=== PATIENT | female | born 1940 | race Caucasian/White ===

== ENCOUNTER 2018-06-07 10:37 | Emergency (ER) | payer MEDICARE ==
[2018-06-07 11:09] VITALS: BP 137/78
--- NOTE | 2018-06-07 12:03 | UC ---
Respiratory Complaint HPI - HPI Summary HPI Summary: 78-year-old female presents with 5-6 day history of nonproductive cough and chest congestion. States cough is worse at night. Complains of bilateral chest wall pain with cough. Reports symptoms are improved today. Denies fever , chills, nasal congestion, nasal discharge, ear pain, sore throat, wheezing, shortness of breath, chest pain, palpitations, diaphoresis, abdominal pain, nausea, or vomiting. - History of Current Complaint Chief Complaint: UCRespiratory Stated Complaint: COUGH,WEAK Time Seen by Provider: 06/07/18 11:52 Hx Obtained From: Patient Pain Intensity: 0 - Allergies/Home Medications Allergies/Adverse Reactions: Allergies Allergy/AdvReac Type Severity Reaction Status Date / Time nitrofurantoin Allergy Rash Verified 06/07/18 11:04 [From Macrodantin] Home Medications: Home Medications Aspirin 81 mg CHEW TAB* [Aspirin Low Dose TAB*] 81 mg PO DAILY 06/07/18 [ History Confirmed 06/07/18] Atenolol TAB* [Tenormin TAB* 50 MG] 50 mg PO DAILY 06/07/18 [History Confirmed 06/07/18] Atorvastatin* [Lipitor*] 20 mg PO DAILY 06/07/18 [History Confirmed 06/07/18] Calcium Carbonate [Calcium/C/D] 1 chw PO DAILY 06/07/18 [History Confirmed 06/07] Losartan TAB* [Cozaar TAB*] 25 mg PO DAILY 06/07/18 [History Confirmed 06/07/18] Omeprazole 40 mg PO DAILY 06/07/18 [History Confirmed 06/07/18] glyBURIDE TAB* [Diabeta TAB*] 10 mg PO BID 06/07/18 [History Confirmed 06/07/18] PMH/Surg Hx/FS Hx/Imm Hx Endocrine History: Diabetes, Dyslipidemia Cardiovascular History: Hypertension GI/ History: Gastroesophageal Reflux - Surgical History Surgical History: Yes Surgery Procedure, Year, and Place: , tonsillectomy - Family History Known Family History: Positive: Non-Contributory - Social History Occupation: Retired Lives: Alone Alcohol Use: None Substance Use Type: None Smoking Status (MU): Never Smoked Tobacco Review of Systems All Other Systems Reviewed And Are Negative: Yes Constitutional: Negative: Fever, Chills Eyes: Negative: Drainage, Eye Redness ENT: Negative: Sore Throat, Ear Ache, Nasal Discharge, Sinus Congestion, Sinus Pain/Tenderness Respiratory: Positive: Cough, Other - Bilateral chest wall tenderness with cough. Negative: Shortness Of Breath Cardiovascular: Negative: Palpitations, Chest Pain Gastrointestinal: Negative: Abdominal Pain, Vomiting, Diarrhea, Nausea Genitourinary: Positive: Negative Musculoskeletal: Positive: Negative Neurological: Positive: Negative Is Patient Immunocompromised?: No Physical Exam - Summary Physical Exam Summary: GENERAL APPEARANCE: Well developed, well nourished, alert and cooperative, and appears to be in no acute distress. EYES: Conjunctiva clear. No drainage. Vision is grossly intact. EARS: External auditory canals and tympanic membranes clear, hearing grossly intact. NOSE: No nasal discharge. THROAT: Pharynx normal No tonsilar inflammation, swelling, exudate, or lesions. Uvula midline. Oral cavity normal. Teeth and gingiva in good general condition. NECK: Neck supple, non-tender without lymphadenopathy. CARDIAC: Normal S1 and S2. No S3, S4 or murmurs. Rhythm is regular. There is no peripheral edema, cyanosis or pallor. Extremities are warm and well perfused. Capillary refill is less than 2 seconds. Peripheral pulses intact. LUNGS: Mild bilateral chest wall tenderness with palpation. Lungs clear to auscultation without rales, rhonchi, wheezing or diminished breath sounds. Cough not observed. ABDOMEN: Positive bowel sounds. Soft, nondistended, nontender. No guarding or rebound. No masses or hepatosplenomegally. MUSKULOSKELETAL: ROM intact to all extremities. No joint erythema or tenderness. Normal muscular development. Normal gait. SKIN: Skin normal color, texture and turgor with no lesions or eruptions. Triage Information Reviewed: Yes Vital Signs: Initial Vital Signs Temp 99.2 F 06/07/18 11:02 Pulse 79 06/07/18 11:02 Resp 18 06/07/18 11:02 BP 137/78 06/07/18 11:02 Pulse Ox 97 06/07/18 11:02 Vital Signs Reviewed: Yes Respiratory Course/Dx - Course Course Of Treatment: 78-year-old female presents with 5-6 day history of nonproductive cough and chest congestion. States cough is worse at night. Complains of bilateral chest wall pain with cough. Reports symptoms are improved today. Denies fever, chills, nasal congestion, nasal discharge, ear pain, sore throat, wheezing, shortness of breath, chest pain, palpitations, diaphoresis, abdominal pain, nausea, or vomiting. Afebrile. Vital signs stable. Exam reveals an older adult female in no acute distress with some mild bilateral chest wall tenderness with palpation, clear bilateral breath sounds, and otherwise unremarkable exam. Recommending symptomatic treatment for an acute bronchitis. I provided her with a prescription for Tessalon Perles 1cap every 8 hours as she needs it for the cough. He is to follow-up with her primary care provider in 3-5 days if symptoms do not improve. Anticipatory guidance and warning symptoms were reviewed with the patient. Verbalizes understanding and agrees with plan of care. - Differential Dx/Diagnosis Differential Diagnosis/HQI/PQRI: Bronchitis, Influenza, Lower Resp Infection, Sinusitis, Other - URI Provider Diagnosis: Acute bronchitis Discharge - Sign-Out/Discharge Documenting (check all that apply): Patient Departure All imaging exams completed and their final reports reviewed: No Studies - Discharge Plan Condition: Stable Disposition: HOME Prescriptions: Benzonatate CAP* [Tessalon 100 MG CAP*] 100 mg PO TID PRN #30 cap PRN Reason: Cough Patient Education Materials: Acute Bronchitis (ED) Referrals: Kelsi Maguire PA [Primary Care Provider] - 3 Days (Follow up in 3-5 days if no improvement in symptoms.) Additional Instructions: Your history and exam are consistent with acute bronchitis which is most often caused by a viral infection. Viral infections do not respond to antibiotics and are limited to the treatment of symptoms. Viral infections typically run their course in 7-10 days. Be aware that the cough with bronchitis may persist for 2-3 weeks even if other symptoms have improved. Get plenty of rest. Drink plenty of fluids. Run a cool mist humidifer in your room at night. Take over the counter acetaminophen (Tylenol) according to directions as needed for pain or fever. Take Tessalon Perles 1 cap every 8 hours as needed for cough. Follow up with your primary care provider in 7 dyas if symptoms do not improve. Seek immediate medical attention in the emergency room if you have fever greater than 100.5 F despite taking acetaminophen or ibuprofen, have chest pain , difficulty breathing, or have any worsening of symptoms. - Billing Disposition and Condition Condition: STABLE Disposition: Home - Attestation Statements Provider Attestation: Per institutional requirements, I have reviewed the chart, however, I was not consulted specifically or made aware of this patient by the midlevel provider. I did not personally evaluate, interact with , or disposition this patient.
== END 2018-06-07 12:17 | disposition home or self-care (01) ==
LOC: UCCORT 10:37
DX: J20.9 Acute bronchitis, unspecified (principal); E11.9 Type 2 diabetes mellitus without complications; E78.5 Hyperlipidemia, unspecified; I10 Essential (primary) hypertension; K21.9 Gastro-esophageal reflux disease without esophagitis; Z79.84 Long term (current) use of oral hypoglycemic drugs; Z79.82 Long term (current) use of aspirin; Z88.1 Allergy status to other antibiotic agents; Z79.899 Other long term (current) drug therapy
CPT/HCPCS: 99202; G0463